=== PATIENT | female | born 1980 | race Caucasian/White ===

== ENCOUNTER 2017-03-26 17:06 | Emergency (ER) | payer MEDICAID, OTHER ==
[~2017-03-26] VITALS: Ht 165.1 cm; Wt 77.3 kg
[~2017-03-26 17:06] MED LIST: CIPR500T2 PO; Z.0.NO CURRENT MEDS
[2017-03-26 17:09] VITALS: BP 130/92; PULSE 84; RESP 18; TEMP 98; O2SAT 98
[2017-03-26 17:55] LABS: AUTOMATED NEUTROPHIL # 3.8 TH/MM3 (1.8-7.7); BASOPHIL % 0.5 % (0.0-2.0); EOSINOPHIL # 0.1 TH/MM3 (0-0.4); EOSINOPHIL % 1.9 % (0.0-4.0); HEMATOCRIT 40.2 % (35.0-46.0); LYMPH % 39.9 % (9.0-44.0); MEAN CORPUSCULAR HEMOGLOBIN 32.4 PG (27.0-34.0); MEAN CORPUSCULAR HGB CONC 34.8 % (32.0-36.0); MEAN PLATELET VOLUME 7.7 FL (7.0-11.0); MONO % 7.5 % (0.0-8.0); MONOCYTE # 0.6 TH/MM3 (0-0.9); NEUT % 50.2 % (16.0-70.0); PLATELET COUNT 273 TH/MM3 (150-450); RED BLOOD COUNT 4.32 MIL/MM3 (4.00-5.30); RED CELL DISTRIBUTION WIDTH 14.7 % (11.6-17.2); WHITE BLOOD COUNT 7.5 TH/MM3 (4.0-11.0)
--- NOTE | 2017-03-26 17:59 | RADRPT ---
EXAM DATE/TIME: 03/26/2017 17:43 [place] COMPARISON: No previous studies available for comparison. INDICATIONS : Left hand, 3rd digit swelling. MEDICAL HISTORY : None. SURGICAL HISTORY : None. ENCOUNTER: Initial ACUITY: 2 days PAIN SCORE: 8/10 LOCATION: Left distal hand, 3rd digit. FINDINGS: 3 views of the left third digit reveal a comminuted fracture involving the tuft of the distal phalanx . There is a fracture line that extends to the articular surface of the DIP joint. No significant ang ulation. A few small fracture fragments from the distal portion of the tuft are displaced towards the palmar surface. There is soft tissue swelling. No radiopaque foreign body. CONCLUSION: Comminuted distal phalangeal fracture as detailed above. Blake Beyer Jr., MD on March 26, 2017 at 17:55 Board Certified Radiologist. This report was verified electronically.
[2017-03-26 18:19] LABS: CALCIUM 8.2 MG/DL (8.5-10.1); CREATININE 0.6 MG/DL (0.50-1.00)
--- NOTE | 2017-03-26 18:37 | PD ---
HPI Chief Complaint: Skin Problem Time Seen by Provider: 18:15 Travel History International Travel<30 days: No Contact w/Intl Traveler<30days: No Traveled to known affect area: No History of Present Illness HPI 36-year-old female presents the emergency department with crush injury to the distal left middle finger 9 days ago. Patient recently seen in [facility] with closure of the area done at that time. Patient was placed on antibiotics and then switch to clindamycin 2 days ago. Plenty of pain , and blackening of the skin. Patient denies fever, chills, or other symptoms. X-rays and labs were ordered in triage. Pain is 8 out of 10. There is no splint on the finger. Allergic to Keflex. PFSH Past Medical History Diminished Hearing: No Gastrointestinal Disorders: Yes (UTI) Immunizations Current: Yes ?: Not LMP: tubal ligation Tubal Ligation: Yes Past Surgical History Section: Yes (X 1) Social History Alcohol Use: Yes (SOCIALLY) Tobacco Use: Yes (1 PPD) Substance Use: No Allergies-Medications (Allergen,Severity, Reaction): Coded Allergies: cephalexin (Unverified Allergy, Mild, Rash, 10/22/16) Reported Meds & Prescriptions Reported Meds & Active Scripts Active Ciprofloxacin Hcl 500 Mg Tab 500 Mg PO BID Reported No Current Meds (Miscellaneous Medication) Misc Review of Systems Except as stated in HPI: all other systems reviewed are Neg General / Constitutional: No: Fever Eyes: No: Visual changes HENT: No: Headaches Cardiovascular: No: Chest Pain or Discomfort Respiratory: No: Shortness of Breath Gastrointestinal: No: Abdominal Pain Genitourinary: No: Dysuria Musculoskeletal: No: Pain Skin: No Rash Neurologic: No: Weakness Psychiatric: No: Depression Endocrine: No: Polydipsia Hematologic/Lymphatic: No: Easy Bruising Physical Exam Narrative GENERAL: Patient is in mild to moderate distress. She smells of alcohol. SKIN: Warm and dry. Normal color. Normal turgor. Patient has mild to moderate erythema to the distal left middle finger with obvious necrotic skin from flap repair, but no obvious signs of wound dehiscence or section or cellulitis. HEAD: Atraumatic. Normocephalic. EYES: Pupils equal and round. No scleral icterus. No injection or drainage. ENT: No nasal bleeding or discharge. Mucous membranes pink and moist. NECK: Trachea midline. No JVD. CARDIOVASCULAR: Regular rate and rhythm. RESPIRATORY: No accessory muscle use. Clear to auscultation. Breath sounds equal bilaterally. GASTROINTESTINAL: Abdomen soft, non-tender, nondistended. Hepatic and splenic margins not palpable. MUSCULOSKELETAL: Extremities without clubbing, cyanosis, or edema. No obvious deformities. Patient has obvious pain with movement of the left middle finger. Otherwise no significant findings. NEUROLOGICAL: Awake and alert. No obvious cranial nerve deficits. Motor grossly within normal limits. Five out of 5 muscle strength in the arms and legs. Normal speech. PSYCHIATRIC: Appropriate mood and affect; insight and judgment normal. Data Data Last Documented VS Vital Signs Date Time Temp Pulse Resp B/P (MAP) Pulse Ox O2 Delivery O2 Flow Rate FiO2 03/26/17 17:09 98.0 84 18 130/92 (105) 98 Orders Orders Complete Blood Count With Diff (03/26/17 17:22) Basic Metabolic Panel (Bmp) (03/26/17 17:22) Finger ([id number]) (03/26/17 ) Labs Laboratory Tests Test 03/26/17 17:35 White Blood Count 7.5 TH/MM3 Red Blood Count 4.32 MIL/MM3 Hemoglobin 14.0 GM/DL Hematocrit 40.2 % Mean Corpuscular Volume 93.0 FL Mean Corpuscular Hemoglobin 32.4 PG Mean Corpuscular Hemoglobin Concent 34.8 % Red Cell Distribution Width 14.7 % Platelet Count 273 TH/MM3 Mean Platelet Volume 7.7 FL Neutrophils (%) (Auto) 50.2 % Lymphocytes (%) (Auto) 39.9 % Monocytes (%) (Auto) 7.5 % Eosinophils (%) (Auto) 1.9 % Basophils (%) (Auto) 0.5 % Neutrophils # (Auto) 3.8 TH/MM3 Lymphocytes # (Auto) 3.0 TH/MM3 Monocytes # (Auto) 0.6 TH/MM3 Eosinophils # (Auto) 0.1 TH/MM3 Basophils # (Auto) 0.0 TH/MM3 CBC Comment DIFF FINAL Differential Comment Blood Urea Nitrogen 8 MG/DL Creatinine 0.60 MG/DL Random Glucose 94 MG/DL Calcium Level 8.2 MG/DL Sodium Level 138 MEQ/L Potassium Level 3.4 MEQ/L Chloride Level 107 MEQ/L Carbon Dioxide Level 24.0 MEQ/L Anion Gap 7 MEQ/L Estimat Glomerular Filtration Rate 113 ML/MIN MDM Medical Decision Making Medical Screen Exam Complete: Yes Emergency Medical Condition: Yes Differential Diagnosis Crush injury. Necrosis. Osteomyelitis. Cellulitis. Narrative Course Labs reviewed showing no significant findings. X-ray of the digit shows crush injury with comminuted fracture of the distal left third finger tuft. No free air is noted. Call was placed to Dr. Dougherty, the hand surgeon patient is discussed. Patient is continued on clindamycin, Dressing is placed with splint coverage. Patient is continue Percocet as necessary and follow Dr. Dougherty's office tomorrow. Diagnosis Primary Impression: Crushing injury of finger of left hand Referrals: Vinicio Dougherty III, MD Patient Instructions: Crush Injury (ED), General Instructions Additional Instructions: Labs reviewed showing no significant findings. X-ray of the digit shows crush injury with comminuted fracture of the distal left third finger tuft. No free air is noted. Call was placed to Dr. Dougherty, the hand surgeon patient is discussed. Patient is continued on clindamycin, Dressing is placed with splint coverage. Patient is continue Percocet as necessary and follow Dr. Dougherty's office tomorrow. Med/Other Pt SpecificInfo: No Change to Meds Disposition: 01 DISCHARGE HOME Condition: Stable Christopher Chaudhry Mar 26, 2017 18:37
[2017-03-28] MEDS ORDERED: CLIN300C5 PO (10:06)
== END 2017-03-26 19:01 | disposition home or self-care (01) ==
LOC: NEPD 17:06
DX: S62.633A Displaced fracture of distal phalanx of left middle finger, initial encounter for closed fracture (principal); F17.200 Nicotine dependence, unspecified, uncomplicated; W23.0XXA Caught, crushed, jammed, or pinched between moving objects, initial encounter
CPT/HCPCS: 73140; 80048; 85025; 99284